=== PATIENT | male | born 1995 | race Caucasian/White ===

== ENCOUNTER 2016-08-26 13:31 | Emergency (ER) | payer BC ==
[~2016-08-26] VITALS: Ht 188 cm; Wt 104.1 kg
[2016-08-26 13:38] VITALS: TEMP 37; Ht 188 cm; Wt 104.1 kg
[2016-08-26 14:16] VITALS: O2SAT 96
[2016-08-26] MEDS ORDERED: SODIUM CHLORIDE 0.9% 1000ML 500 ML IV STA (14:31)
--- NOTE | 2016-08-26 14:52 | EMERGENCY ROOM VISIT NOTE ---
History Report prepared by Jona: Pierce Barger Under the Supervision of: Dr. Delbert Avila M.D. First contact with patient: 14:28 Chief Complaint: SEIZURE Stated Complaint: SEIZURE Nursing Triage Summary: Patient states he was sitting down this morning and feels like he lost consciousness and he remembers briefly his head was shaking. Concerned he may have had a seizure. Denies any history. Patient states he was oriented when he awoke. Also c/o issues with constipation and blood in his stool. History of Present Illness The patient is a 21 year old male who presents to the Emergency Room with complaints of a sudden seizure beginning a few hours prior to arrival. He states he put something in the toaster this morning, and then he remembers sitting on the floor. The patient states he recalls being on his back with violent shakes. He notes he believes he hit his head repeatedly. The patient states his glasses were off of his head when he stood up, and the toaster had not gone of yet. Therefore, the patient believes the episode lasted 1-3 minutes. The patient also complains of resolved abdominal pain that began yesterday and intermittent blood in his stool. He notes he went to [facility] prior to arrival for his abdominal pain, and the provider referred the patient to the ED for further evaluation given his seizure-like episode this morning. The patient denies a history of seizures. He states that during a bowel movement , there will intermittently be blood in his stool and when he wipes. The patient notes it has been more difficult to have a bowel movement, and his stool has appeared harder than normal. The patient denies a fever, diarrhea, and a history of abdominal surgeries. Source of History: patient Onset: few hours [employer] Position: other (global) Quality: other (seizure) Timing: other (sudden) Associated Symptoms: + abdominal pain (resolved), + hematochezia ( intermittent), No diarrhea, No fevers Note: Associated symptoms: difficulty moving bowels. Review of Systems See HPI for pertinent positives & negatives. A total of 10 systems reviewed and were otherwise negative. Past Medical & Surgical Medical Problems: (1) Asthma Family History Diabetes mellitus Hypertension Social History Smoking Status: Current Some Day Smoker Marital Status: single Housing Status: lives with roommate Occupation Status: student Current/Historical Medications Scheduled Sennosides-Docusate Sodium (Senokot S), 1-2 TAB PO BID Allergies Coded Allergies: No Known Allergies (Unverified , 08/26/16) Physical Exam Vital Signs Date Time Temp Pulse Resp B/P Pulse Ox O2 Delivery O2 Flow Rate FiO2 08/26/16 17:26 80 16 136/79 97 Room Air 08/26/16 15:55 73 11 128/72 97 Room Air 08/26/16 14:35 85 118/86 87 128/67 85 124/71 08/26/16 14:16 96 Room Air 08/26/16 14:15 91 18 99/79 96 Room Air 08/26/16 14:15 97 Room Air 08/26/16 13:38 37.0 88 20 96 Room Air Physical Exam GENERAL: Patient is in no acute distress. HEENT: No acute trauma, normocephalic atraumatic, mucous membranes moist, no nasal congestion, no scleral icterus. NECK: No stridor, no adenopathy, no meningismus, trachea is midline. LUNGS: Clear to auscultation bilaterally, no wheeze, no rhonchi, breath sounds equal. HEART: Without murmurs gallops or rubs, regular rate and rhythm. ABDOMEN: Soft, nontender, bowel sounds positive, no hernias, no peritonitis. RECTAL: No evidence for hemorrhoids or for anal tears. No active rectal bleeding. Digital exam shows no masses. Stool is brown and heme negative. EXTREMITIES: No cyanosis or edema, full range of motion of all the joints without pain or difficulty, no signs for acute trauma. NEUROLOGIC: Oriented x 3, no acute motor or sensory deficits, no focal weakness. SKIN: No rash, no jaundice, no diaphoresis. Medical Decision & Procedures ER Provider Diagnostic Interpretation: X ray results and stated below per my interpretation and radiologist interpretation. Other radiology results and stated below per my review and radiologist interpretation: PA CHEST WITH ABDOMINAL SERIES CLINICAL HISTORY: Left lower quadrant abdominal pain. FINDINGS: A PA chest radiograph is obtained. No prior studies are available for comparison at the time of dictation. The cardiomediastinal silhouette is unremarkable. The lungs and pleural spaces are clear. No pneumothorax is seen. The bony thorax is grossly intact. Supine and erect abdominal radiographs are obtained. No prior studies are available for comparison at the time of dictation. There is a nonobstructed abdominal bowel gas pattern. No evidence of intraperitoneal free air is seen. Moderate colonic fecal retention is observed. There are no abnormal abdominal calcifications. A small phlebolith is noted in the left hemipelvis. The lumbosacral spine and bony pelvis appear intact. IMPRESSION: 1. No active disease in the chest. 2. Nonobstructed abdominal bowel gas pattern noting moderate colonic fecal retention. Electronically signed by: Delbert Siegel M.D. 08/26/2016 4:[address] SCAN OF THE BRAIN WITHOUT IV CONTRAST CLINICAL HISTORY: Seizure. COMPARISON STUDY: No priors. TECHNIQUE: Unenhanced axial CT scan of the brain is performed from the vertex to the skull base. Automated dose control exposure was utilized. CT DOSE: 537.48 mGy.cm FINDINGS: Brain parenchyma: The brain parenchyma is normal in appearance. There is no hemorrhage, mass effect, or evidence of acute territorial ischemia by CT criteria. Read-white matter is preserved. No extra-axial fluid collection is seen. Ventricles, sulci, cisterns: Normal in configuration. Intracranial vasculature: The visualized intracranial vasculature at the skull base is normal in appearance. Calvarium: Unremarkable. Sinuses and mastoids: The visualized paranasal sinuses are clear. The mastoid air cells are well pneumatized. Orbits: The bony orbits are grossly intact. IMPRESSION: No acute intracranial abnormality. Electronically signed by: Delbert Siegel M.D. 08/26/2016 4:12 PM Laboratory Results 08/26/16 15:20 Red Blood Count 5.48, Mean Corpuscular Volume 83.9, Mean Corpuscular Hemoglobin 30.5, Mean Corpuscular Hemoglobin Concent 36.3, Mean Platelet Volume 9.0, Neutrophils (%) (Auto) 74.8, Lymphocytes (%) (Auto) 18.4, Monocytes (%) (Auto) 5.2, Eosinophils (%) (Auto) 1.1, Basophils (%) (Auto) 0.4, Neutrophils # (Auto) 5.49, Lymphocytes # (Auto) 1.35, Monocytes # (Auto) 0.38, Eosinophils # (Auto) 0.08, Basophils # (Auto) 0.03 08/26/16 15:20 Test 08/26/16 15:20 08/26/16 16:22 White Blood Count 7.34 K/uL (4.8-10.8) Red Blood Count 5.48 M/uL (4.7-6.1) Hemoglobin 16.7 g/dL (14.0-18.0) Hematocrit 46.0 % (42-52) Mean Corpuscular Volume 83.9 fL (80-100) Mean Corpuscular Hemoglobin 30.5 pg (25-34) Mean Corpuscular Hemoglobin Concent 36.3 g/dl (32-36) Platelet Count 292 K/uL (130-400) Mean Platelet Volume 9.0 fL (7.4-10.4) Neutrophils (%) (Auto) 74.8 % Lymphocytes (%) (Auto) 18.4 % Monocytes (%) (Auto) 5.2 % Eosinophils (%) (Auto) 1.1 % Basophils (%) (Auto) 0.4 % Neutrophils # (Auto) 5.49 K/uL (1.4-6.5) Lymphocytes # (Auto) 1.35 K/uL (1.2-3.4) Monocytes # (Auto) 0.38 K/uL (0.11-0.59) Eosinophils # (Auto) 0.08 K/uL (0-0.5) Basophils # (Auto) 0.03 K/uL (0-0.2) RDW Standard Deviation 38.1 fL (36.4-46.3) RDW Coefficient of Variation 12.5 % (11.5-14.5) Immature Granulocyte % (Auto) 0.1 % Immature Granulocyte # (Auto) 0.01 K/uL (0.00-0.02) Anion Gap 9.0 mmol/L (3-11) Est Creatinine Clear Calc Drug Dose 134.4 ml/min Estimated GFR () 109.1 Estimated GFR (Non- 94.1 BUN/Creatinine Ratio 7.6 (10-20) Calcium Level 9.2 mg/dl (8.5-10.1) Total Bilirubin 0.8 mg/dl (0.2-1) Aspartate Amino Transf (AST/SGOT) 27 U/L (15-37) Alanine Aminotransferase (ALT/SGPT) 43 U/L (12-78) Alkaline Phosphatase 92 U/L (45-117) Total Protein 7.6 gm/dl (6.4-8.2) Albumin 4.4 gm/dl (3.4-5.0) Globulin 3.2 gm/dl (2.5-4.0) Albumin/Globulin Ratio 1.4 (0.9-2) Lipase 187 U/L (73-393) Urine Color YELLOW Urine Appearance CLEAR (CLEAR) Urine pH 5.5 (4.5-7.5) Urine Specific [place] 1.014 (1.000-1.030) Urine Protein NEG (NEG) Urine Glucose (UA) NEG (NEG) Urine Ketones NEG (NEG) Urine Occult Blood NEG (NEG) Urine Nitrite NEG (NEG) Urine Bilirubin NEG (NEG) Urine Urobilinogen NEG (NEG) Urine Leukocyte Esterase NEG (NEG) Laboratory results reviewed by me. Medications Administered Medications (Trade) Dose Ordered Sig/Rosamaria Route Start Time Stop Time Status Last Admin Dose Admin Sodium Chloride (Nss 1000ml) 500 ml @ 999 mls/hr Q31M STAT IV 08/26/16 14:31 08/26/16 15:01 DC 08/26/16 14:31 999 MLS/HR Senna/Docusate Sodium (Senokot S Tab) 2 tab NOW ONCE PO 08/26/16 17:30 08/26/16 17:31 DC 08/26/16 17:33 2 TAB ED Course 1430: The patient was evaluated in room B6. A complete history and physical exam was performed. 1431: Ordered Sodium Chloride 500 ml @ 999 mls/hr IV. 1730: Ordered Senokot S Tab 2 tabs PO. 1735: Reevaluated the patient. Discussed results and discharge instructions: He verbalized understanding and agreement. The patient is ready for discharge. Medical Decision The differential diagnoses include but are not limited to: constipation, near syncope, seizure, electrolyte imbalance, anemia, dehydration, anxiety, hemorrhoid. There is no leukocytosis or concerning anemia. No significant electrolyte abnormality, kidney failure or hepatitis. Orthostatic vital signs are negative. Rectal exam shows brown stool, the stool is heme-negative. Brain CT shows no acute bleed or mass effect. Obstruction series shows constipation, no pneumonia, free air or bowel obstruction. There is no pancreatitis. Urinalysis does not show hematuria or infection. The patient presents with abdominal pain yesterday and a near syncopal event earlier today. He was awake though with today's event and remembers what happened, his abdominal pain is not present today but was there yesterday. I doubt he had a seizure and he has no seizure history, he did not lose his bowel or bladder continence or bite his tongue. The patient was told about the constipation. He was given oral Senokot. He is being discharged on this medication. He did receive some IV saline during his ER stay. The patient is being referred to neurology. He was given information to call to set up an appointment. He will be on Senokot for constipation. If things are worsening, he can return for reassessment. Impression Primary Impression: Near syncope Additional Impressions: Diffuse abdominal pain Constipation Scribe Attestation The scribe's documentation has been prepared under my direction and personally reviewed by me in its entirety. I confirm that the note above accurately reflects all work, treatment, procedures, and medical decision making performed by me. Departure Information Dispostion Home / Self-Care Prescriptions Sennosides-Docusate Sodium (SENOKOT S) 1 Tab Tab 1-2 TAB PO BID, #60 TAB 2 Refills Prov: Delbert Avila M.D. 08/26/16 Referrals No Doctor, Assigned (PCP) Forms HOME CARE DOCUMENTATION FORM, IMPORTANT VISIT INFORMATION Patient Instructions My [facility] Additional Instructions Senokot 1-2 tab 2x per day to help with constipation call Neurology for appt--may need an EEG return for worsening symptoms lab testing, brain CT and xrays were ok today Problem Qualifiers
[2016-08-26 15:34] LABS: BASO % 0.4 %; BASO ABS # 0.03 K/uL (0-0.2); COMPLETE YES; EOS % 1.1 %; IG% 0.1 %; LYMPH % 18.4 %; LYMPH ABS # 1.35 K/uL (1.2-3.4); MEAN CELL VOLUME 83.9 fL (80-100); MEAN CORPUSCULAR HEMOGLOBIN 30.5 pg (25-34); MEAN CORPUSCULAR HGB CONC 36.3 g/dl (32-36); MONO % 5.2 %; NEUT % 74.8 %; PLATELET COUNT 292 K/uL (130-400); RED BLOOD COUNT 5.48 M/uL (4.7-6.1); WHITE BLOOD COUNT 7.34 K/uL (4.8-10.8)
[2016-08-26 15:58] LABS: CREATININE 1.1 mg/dl (0.60-1.40)
[2016-08-26 15:59] LABS: BUN/CREATININE RATIO 7.6 (10-20); CALCIUM 9.2 mg/dl (8.5-10.1); POTASSIUM 3.9 mmol/L (3.5-5.1)
[2016-08-26 16:01] LABS: ALB/GLOB RATIO 1.4 (0.9-2)
--- NOTE | 2016-08-26 16:13 | DIAGNOSTIC IMAGING REPORT ---
CT SCAN OF THE BRAIN WITHOUT IV CONTRAST CLINICAL HISTORY: Seizure. COMPARISON STUDY: No priors. TECHNIQUE: Unenhanced axial CT scan of the brain is performed from the vertex to the skull base. Automated dose control exposure was utilized. CT DOSE: 537.48 mGy.cm FINDINGS: Brain parenchyma: The brain parenchyma is normal in appearance. There is no hemorrhage, mass effect, or evidence of acute territorial ischemia by CT criteria. Read-white matter is preserved. No extra-axial fluid collection is seen. Ventricles, sulci, cisterns: Normal in configuration. Intracranial vasculature: The visualized intracranial vasculature at the skull base is normal in appearance. Calvarium: Unremarkable. Sinuses and mastoids: The visualized paranasal sinuses are clear. The mastoid air cells are well pneumatized. Orbits: The bony orbits are grossly intact. IMPRESSION: No acute intracranial abnormality. Electronically signed by: Delbert Siegel M.D. 08/26/2016 4:12 PM Dictated Date/Time: 08/26/2016 4:07 PM
--- NOTE | 2016-08-26 16:48 | DIAGNOSTIC IMAGING REPORT ---
PA CHEST WITH ABDOMINAL SERIES CLINICAL HISTORY: Left lower quadrant abdominal pain. FINDINGS: A PA chest radiograph is obtained. No prior studies are available for comparison at the time of dictation. The cardiomediastinal silhouette is unremarkable. The lungs and pleural spaces are clear. No pneumothorax is seen. The bony thorax is grossly intact. Supine and erect abdominal radiographs are obtained. No prior studies are available for comparison at the time of dictation. There is a nonobstructed abdominal bowel gas pattern. No evidence of intraperitoneal free air is seen. Moderate colonic fecal retention is observed. There are no abnormal abdominal calcifications. A small phlebolith is noted in the left hemipelvis. The lumbosacral spine and bony pelvis appear intact. IMPRESSION: 1. No active disease in the chest. 2. Nonobstructed abdominal bowel gas pattern noting moderate colonic fecal retention. Electronically signed by: Delbert Siegel M.D. 08/26/2016 4:46 PM Dictated Date/Time: 08/26/2016 4:46 PM
[2016-08-26 17:00] LABS: URINE APPEARANCE CLEAR (CLEAR); URINE BILIRUBIN NEG (NEG); URINE COLOR YELLOW; URINE NITRITE NEG (NEG); URINE PH 5.5 (4.5-7.5); URINE SPECIFIC GRAVITY 1.014 (1.000-1.030); UROBILINOGEN NEG (NEG); ZZUR CULT IF INDIC CLEAN CATCH NO
[2016-08-26 17:05] LABS: MANUAL MICROSCOPIC REQUIRED? NO; REVIEW REQ? NO
[2016-08-26 17:26] VITALS: BP 136/79; PULSE 80; O2SAT 97
[2016-08-26] MEDS ORDERED: SENN-65 PO (17:26)
[2016-08-26] MEDS ORDERED: DOCUSATE SODIUM/SENNA 50/8.6MG TAB PO ONE (17:30)
== END 2016-08-26 17:37 | disposition home or self-care (01) ==
LOC: C.EDB 13:35
DX: R55 Syncope and collapse (principal); R10.9 Unspecified abdominal pain; K59.00 Constipation, unspecified; J45.909 Unspecified asthma, uncomplicated; F17.200 Nicotine dependence, unspecified, uncomplicated; Z83.3 Family history of diabetes mellitus; Z82.49 Family history of ischemic heart disease and other diseases of the circulatory system